=== PATIENT | male | born 1990 | race Caucasian/White ===

== ENCOUNTER 2024-03-08 10:45 | Outpatient (RCR) | payer OTHER, SELFPAY ==
[2024-02-24 13:12] VITALS: BP 122/80; PULSE 60; TEMP 37
[2024-02-24 13:14] VITALS: BMI 29.8
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
--- NOTE | 2024-02-24 22:59 | P.HPPSP_ITS ---
[facility] Date of Service: 02/24/24 Chief Complaint: PTSD,depression Sources of Information: patient interviewed, chart reviewed and crisis/core team assessment reviewed [facility] Medical History (Updated 02/26/24 @ 22:47 by Frances Bay MD) GERD (gastroesophageal reflux disease) History of multiple concussions Fracture of right lower leg Surgical History (Updated 02/24/24 @ 13:08 by Gina Potter RN) History of tonsillectomy Diagnostics Vital Signs (24Hr): Vital Signs - 24 hr 02/24/24 13:12 Temperature 98.6 F Pulse Rate 60 Blood Pressure 122/80 BMI result Body Mass Index 29.8 Meds/Allergies Meds Home Medications ?Medication ?Instructions ?Recorded ?Confirmed ?Type No Known Home Meds 02/24/24 02/24/24 History Allergies Allergies Allergy/AdvReac Type Severity Reaction Status Date / Time No Known Allergies Allergy Verified 02/24/24 13:10 Mental Status Exam Mental Status Exam Narrative: MSE Alert, oriented, in no acute distress. Calm, cooperative, engaged. No psychomotor agitation or neurovegetative retardation. Eye contact maintained. Mood depressed, affect dysthymic, blunted without tearfulness or lability. Speech normal, soft, flat without slowing. Thought process linear, coherent, delay in some responses. Thought content related to stressors, +transient hopelessness, +passive SI, denies any intention, urge or plan to harm self. Denies any aggressive ideation or HI. No paranoia or delusional content elicited. No evidence of psychosis. Insight and judgment fair. Assessment & Plan Assessment & Plan (1) MDD (major depressive disorder), recurrent episode, severe: Status: Acute Code(s): F33.2 - Major depressive disorder, recurrent severe without psychotic features (2) Other reactions to severe stress: Status: Acute Code(s): F43.89 - Other reactions to severe stress Assessment and Plan: r/o complex PTSD (?RAD) (3) Mental disorder: Status: Acute Code(s): F99 - Mental disorder, not otherwise specified Assessment and Plan: subclinical paranoia (?stemming from acute stress/trauma vs psych features of depression) vs characterological/PD - cluster A/paranoid type vs developmental disorder/ASD/NVLD Plan Admit to PHP VS reviewed: abrefile, BP ? bpm continue other regular medications? Routine lab work ordered EKG, routine for baseline QTc for medication considerations UDS as indicated MassPat reviewed Continue to monitor as per protocol Patient educated on: diagnosis and medication risk/benefits Informed Consent: understands Reason for continued partial hosp. stay Substantial Risk for: harm to self, inability to function, rapid decompensation and med/psych decompensation Certification I certify that partial hospital treatment is medically necessary due to the symptoms and problems resulting from the patient's mental illness and the failure to treat the patient at the partial hospital level of care would likely result in the patient requiring inpatient psychiatric care which could not be prevented at a less intensive level of care. Time Spent With Patient Time: Total time managing care of this patient today __60__ minutes.
--- NOTE | 2024-02-28 09:47 | PC.NURSE ---
New PCP appointment on Wednesday February 28, 2024 at 5:00 pm with Connor Matos DO. [facility], [address] [place] [address], [place], [place]. Office # [phone].
--- NOTE | 2024-03-01 14:56 | HO.PHP ---
Client's case has been opened and reviewed in team.
--- NOTE | 2024-03-02 12:17 | P.PNPSP_ITS ---
Subjective Subjective Date of Service: 03/02/24 Reason For Visit: PTSD,depression Diagnostics Vital Signs (24Hr): BMI result Body Mass Index 29.8 Assessment & Plan Certification I certify that partial hospital treatment is medically necessary due to the symptoms and problems resulting from the patient's mental illness and the failure to treat the patient at the partial hospital level of care would likely result in the patient requiring inpatient psychiatric care which could not be prevented at a less intensive level of care. Total time managing care of this patient today ____ minutes. Discharge Plan Discharge Attending provider: Frances Bay Medications: No Action No Known Home Meds Stand Alone Forms: Patient Portal Discharge page Print Language: Yoruba
--- NOTE | 2024-03-06 14:12 | HO.PHP ---
[facility] staff member returned Juan's therapist, Diana Huerta, phone call regarding how Juan has been engaging in the program. PHP staff member informed Diana that Juan has been actively engaged throughout the groups and has been able to process the precipitating factors that brought him to the program, along with any additional stressors. Diana was glad to hear this information since he did not want to engage in [facility] originally but she stated the girlfriend told him if he doesn't work on his depression, she does not see their relationship continuing. PHP staff member was receptive. PHP staff member shared some insight around control and coping skills that Juan has been struggling with. [facility] staff also noted that he appears to be a concrete learner as well. Diana also talked about the control aspect as well. Diana thanked the clinician for providing insight around his treatment while in [facility]. Diana noted her next appointment with Juan is March 09, 2024 at 11 AM via telehealth.
--- NOTE | 2024-03-08 12:19 | P.PNPSP_ITS ---
Subjective Subjective Date of Service: 03/08/24 Reason For Visit: PTSD,depression Interim History: Mr. 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 He reports i was particularly helpful to write down and assess feeling, thought associated with impulses to harm himself such as punching self or stabbing. He denies SI/HI. He denies any urges, plan or intent o harm himself. He appears more future oriented and hopeful about his situation. He declined medications during the program. He will continue OP psychotherapy. Mental Status Exam Mental Status Exam Narrative: Appearance: casually groomed, good hygiene, in NAD Behavior: cooperative and friendly Psychomotor: no agitation or retardation noted Speech: clear, normal rate/rhythm/volume, spontaneous TP: linear TC: future oriented, looking forward to continue tx and advancing his career, sees more options than when he first came in Mood: better Affect: congruent SI: denies HI: denies VH/AH: none Delusions: no overt delusional content noted Insight/judgment: intact x 2. Memory/cog: alert, oriented x 3. grossly intact to conversational testing. Diagnostics Vital Signs (24Hr): BMI result Body Mass Index 29.8 Assessment & Plan Assessment & Plan (1) MDD (major depressive disorder), recurrent episode, severe: Status: Acute Code(s): F33.2 - Major depressive disorder, recurrent severe without psychotic features Plan Pt with presents with brighter, non labile affect. No signs of suicidal or homicidal ideation. No overt signs of psychosis or delusional content. He will continue outpatient psychotherapy. No medication was prescribed during PHP at his request. No safety concerns. Certification I certify that partial hospital treatment is medically necessary due to the symptoms and problems resulting from the patient's mental illness and the failure to treat the patient at the partial hospital level of care would likely result in the patient requiring inpatient psychiatric care which could not be prevented at a less intensive level of care. Total time managing care of this patient today ____ minutes. Discharge Plan Discharge Attending provider: Frances Bay Medications: No Action No Known Home Meds Stand Alone Forms: Patient Portal Discharge page Patient Education: Depression (DC) Print Language: Indonesian
== END 2024-03-08 23:59 | disposition home or self-care (01) ==
LOC: HO.PHPA 10:45
PROVIDERS: Visit Provider Psychiatry & Neurology Psychiatry
DX: F33.2 Major depressive disorder, recurrent severe without psychotic features (principal); F43.89 Other reactions to severe stress; F99 Mental disorder, not otherwise specified
CPT/HCPCS: 90791; 90853

== ENCOUNTER → 2024-03-08 10:45 | Outpatient (BNV) | payer OTHER, SELFPAY | PROVIDERS: Visit Provider Social Worker | DX: F33.2 Major depressive disorder, recurrent severe without psychotic features (principal) | CPT/HCPCS: 99213 ==